=== PATIENT | male | born 1965 | race Caucasian/White ===

== ENCOUNTER 2024-06-14 20:36 | Emergency (ER) | payer OTHER, SELFPAY ==
--- NOTE | ~2024-06-14 | CT_ITS ---
CT of the Abdomen and Pelvis: Indication: Bilateral flank pain Technique: 2.5 mm axial scans were obtained through the abdomen and pelvis following intravenous adm inistration of 100 cc of Omnipaque 350. Dose reduction technique was used on this scan by utilizing a utomated exposure control and iterative reconstruction technique. The dose-length product (DLP) was 9 36.86 mGy-cm. Findings: Scans through the lung bases demonstrate 6 mm left basilar pulmonary nodule. Scattered small probable hepatic cysts are present. The spleen, pancreas, gallbladder, adrenals and l eft kidney are within normal limits. 2.4 cm right renal mass present, possibly mildly hyperdense cyst (axial image 63). There are atherosclerotic calcifications of the aorta. No lymphadenopathy. No bowel obstruction or bowel wall thickening. There is no evidence to suggest acute appendicitis. Images through the pelvis were performed. Urinary bladder unremarkable. Prostate gland mildly enlarge d. No ascites. Impression: No acute abnormality. 2.4 cm probable mildly hyperdense right renal cysts. Ultrasound recommended to confirm benign cyst. 6 mm left basilar pulmonary nodule. According to Fleischner Society criteria, for a low-risk patient, recommended 6-12 month follow-up CT scan, then consider additional 18-[address] [facility] scans at both 6-12 months and 18-24 months are recommended. Reviewed, dictated and finalized at location . Impression: No acute abnormality. 2.4 cm probable mildly hyperdense right renal cysts. Ultrasound recommended to confirm benign cyst. 6 mm left basilar pulmonary nodule. According to Fleischner Society criteria, f or a low-risk patient, recommended 6-12 month follow-up CT scan, then consider additional 18-[address] For a high-risk patient, follow-up CT scans at both 6-12 months and 18-24 months are recommended.
--- NOTE | ~2024-06-14 | CT_ITS ---
Noncontrast CT scan of the lumbar spine CLINICAL HISTORY: Back pain TECHNIQUE: Axial noncontrast imaging of the lumbar spine was performed. Sagittal and coronal reformat roscoe images were constructed. Dose reduction technique was used on this scan by utilizing automated ex posure control and iterative reconstruction technique. The dose-length product (DLP) was 874.33 mGy-c m. FINDINGS: There is no fracture or subluxation of the lumbar spine. Vertebral bodies maintain normal h eight and alignment. There is moderate degenerative disc narrowing at L1-L2. Remaining disc spaces de monstrate minimal degenerative disc narrowing. At L1-L2, there is no significant disc bulge or herniation. No spinal canal stenosis or definite neur al foraminal narrowing. At L2-L3, there is no significant disc bulge or herniation. No spinal canal stenosis or neural forami nal narrowing. At L3-L4, there is no significant disc bulge or herniation. There is mild facet arthropathy. No centr al canal stenosis or neural foraminal narrowing. At L4-L5, there is minimal disc bulge and moderate facet arthropathy. No central canal stenosis. Ther e is probable mild bilateral neural foraminal narrowing, left worse than right. At L5-S1, there is disc bulge and mild facet arthropathy. No micheline central canal stenosis. There is m oderate to advanced bilateral neural foraminal narrowing. Paravertebral soft tissues are unremarkable. Impression: Bilateral neural foraminal narrowing at L5-S1, and L4-L5, as detailed above. Reviewed, dictated and finalized at location M. Impression: Bilateral neural foraminal narrowing at L5-S1, and L4-L5, as detailed above.
[2024-06-14 20:38] VITALS: BP 165/90; PULSE 102; RESP 16; TEMP 36.4; O2SAT 98
[2024-06-14 22:32] VITALS: BP 144/72; PULSE 88; RESP 20; O2SAT 96
[2024-06-14 23:02] VITALS: BP 134/82; PULSE 78; RESP 20; O2SAT 97
--- NOTE | 2024-06-14 23:43 | ED.BACK ---
HPI - Back Pain/Injury General Chief Complaint: Back Pain/Injury Stated Complaint: R lower back pain Time Seen by Provider: 06/14/24 22:20 Source: patient Limitations: no limitations History of Present Illness HPI Narrative: Patient is a 58-year-old male presents to the emergency department complaining of lower back pain. Patient notes the pain is been going on for the past 2 weeks, describes it as a pain, comes and goes, feels acutely gets better when he is bending forward her in a crouched position, slightly worse when standing up straighter lying flat but and also has a mind of its own, pain does not radiate including to his legs, has tried some [place] from his friends which only helps a little bit, admits to a similar pain in the past when he had kidney stones, feels again is worse on the right when compared to the left but also present on both sides. Patient denies numbness, weakness, recent injuries, recent illness, diarrhea, constipation, melena, hematochezia, urinary discomfort, testicular pain, testicular swelling, abdominal pain, nausea, vomiting, chest pain, difficulty breathing, history of IV drug use, history of cancer. Patient notes that the pain is been going on for the past 2 weeks and has not gotten markedly worse rather it does has not gone away and so he wanted to get checked out. 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 Related Data Allergies Allergy/AdvReac Type Severity Reaction Status Date / Time No Known Allergies Allergy Verified 06/14/24 20:37 Review of Systems Review of Systems: A 10 system review of systems was completed on the patient and is negative except for what is stated in the HPI. Nursing and ancillary documentation was reviewed. PMFSH Comments At time of signature, I have reviewed and agree with nursing past medical, surgical, social and family history unless otherwise noted. Please see the nursing chart for further information. There is no relevant family history pertinent to the presenting complaint. Exam Narrative: CONST: Sitting in a chair upon arrival to the room appearing to be in his only position of comfort. HENMT: Head is normocephalic and atraumatic. Moist mucous membranes. No posterior oropharynx erythema. EYES: No conjunctival icterus, injection, or pallor. PERRL. NECK: No meningeal signs. RESP: Able to speak in full sentences. Normal respiratory effort. CTAB. CARDIO: Regular rate. Regular rhythm. 2+ DP and radial pulses bilaterally. GI: Nondistended. No tenderness to palpation. Soft. No pulsatile abdominal mass. : No CVA tenderness to palpation. SKIN: No rashes or lesions noted on exposed skin. NEURO: Oriented x3. Moves all extremities. No focal neurological deficits. EXTREM/MSK/BACK: No pedal edema. No midline vertebral tenderness to palpation or step-offs. Bilateral paralumbar muscle spasms. Negative straight leg raise on the left. Pain is reproduced in the right lower back with straight leg raise on the right however does not radiate down the leg. PSYCH: Normal affect. Course Vital Signs Vital signs: Vital Signs Temperature 97.6 F 06/14/24 20:38 Pulse Rate 102 H 06/14/24 20:38 Respiratory Rate 16 06/14/24 20:38 Blood Pressure 165/90 H 06/14/24 20:38 Pulse Oximetry 98 06/14/24 20:38 Oxygen Delivery Room Air 06/14/24 20:38 Temperature 97.6 F 06/14/24 20:38 Pulse Rate 78 06/14/24 23:02 Respiratory Rate 20 06/14/24 23:02 Blood Pressure 134/82 06/14/24 23:02 Pulse Oximetry 97 06/14/24 23:02 Oxygen Delivery Room Air 06/14/24 20:38 MDM - Back Pain/Injury MDM Narrative Medical decision making narrative: Patient presents with the above complaint. Initial vitals are remarkable for no significant abnormalities. Physical examination as
[2024-06-15] MEDS: diazePAM (*CRX) 5 MG TABLET PO (00:02)
[2024-06-15] MEDS: KETOROLAC 15 MG/ML VIAL (*BKC) IV PUSH (00:02)
[2024-06-15 00:12] LABS: Basophils Absolute Auto 0.1 K/mm3 (0.0-0.1); Basophils Percent Auto 0.8 % (0.2-1.2); Eosinophils Absolute Auto 0.2 K/mm3 (0-0.3); Eosinophils Percent Auto 1.7 % (0-4.4); Hemoglobin 15.9 g/dL (14.0-18.0); Immature Granulocyte Absolute 0.06 K/mm3 (0.00-0.031); Immature Granulocyte Percent A 0.6 % (0-0.5); Lymphocytes Absolute Auto 2.82 K/mm3 (0.9-3.2); Lymphocytes Percent Auto 30.3 % (18.3-44.2); Mean Corpuscular HGB Conc 35.3 g/dl (32-36); Mean Corpuscular Hemoglobin 31.7 pg (26-34); Mean Corpuscular Volume 89.6 fl (80-100); Mean Platelet Volume 9.3 fl (7.4-10.4); Monocytes Absolute Auto 0.7 K/mm3 (0.1-0.6); Neutrophils Absolute Auto 5.5 K/mm3 (1.3-6.7); Neutrophils Percent Auto 59.6 % (45.5-73.1); Platelet Count Result 302 k/mm3 (150-375); Red Blood Count 5.02 M/mm3 (4.6-6.20); Red Cell Distribution Width 12.8 % (11.5-14.5); White Blood Count 9.3 K/mm3 (4.5-10.0)
[2024-06-15 00:13] LABS: Appearance Urine Clear (Clear); Bilirubin Urine Negative (Negative); Blood Urine Negative (Negative); Color Urine Yellow (Yellow); Glucose Urine UA Negative (Negative); Ketones Urine Negative (Negative); Leukocyte Esterase Ur Negative LEU/UL (Negative); Nitrate Urine Negative (Negative); Protein Urine Negative (Negative); Urobilinogen Urine 0.2 mg/dL (<2.0)
[2024-06-15 00:20] LABS: Add Urine Microscopic? NO
[2024-06-15 00:25] LABS: Alanine Aminotransferase 28 U/L (6-50); Albumin Level 4.6 g/dL (3.5-5.1); Alkaline Phosphatase 54 U/L (38-126); Anion Gap 11 mmol/L (4-12); Aspartate Amino Transferase 25 U/L (17-59); Blood Urea Nitrogen 15 mg/dL (9-20); CRP < 0.5 mg/dL (<1.0); Calcium 9.1 mg/dL (8.4-10.2); Carbon Dioxide 24 mmol/L (22-30); Chloride 100 mmol/L (98-107); Creatine Kinase 59 U/L (55-170); Estimated CRCL calculation 80 ml/min; Estimated Glomerular Filt Rate > 60; Glucose 98 mg/dL (65-110); Lipase 111 U/L (23-300); Magnesium 2.2 mg/dL (1.6-2.3); Potassium 4.1 mmol/L (3.4-5.0); Sodium 135 mmol/L (137-145)
[2024-06-15 02:56] VITALS: BP 135/79; PULSE 78; RESP 18; O2SAT 98
== END 2024-06-15 03:04 | disposition home or self-care (01) ==
PROVIDERS: Emergency Provider Student in an Organized Health Care Education/Training Program
DX: S39.012A Strain of muscle, fascia and tendon of lower back, initial encounter (principal); M51.26 Other intervertebral disc displacement, lumbar region; X58.XXXA Exposure to other specified factors, initial encounter
CPT/HCPCS: 36415; 72131; 74174; 80053; 81003; 82550; 83690; 83735; 85025; 86140; 96374; 99284; A9270; J1885; Q9967